=== PATIENT | female | born 1960 | race Caucasian/White ===

== ENCOUNTER 2018-02-14 01:42 | Outpatient (CLI) | payer MEDICAID ==
[~2018-02-14 01:42] MED LIST: INSU100V36 SQ
== END 2018-02-14 23:59 | disposition home or self-care (01) ==
LOC: DIABETIC 01:42
PROVIDERS: ATTEND Surgery
DX: E66.01 Morbid (severe) obesity due to excess calories (principal); E11.9 Type 2 diabetes mellitus without complications; I10 Essential (primary) hypertension; K21.9 Gastro-esophageal reflux disease without esophagitis
CPT/HCPCS: 97802

== ENCOUNTER 2018-05-16 03:06 | Outpatient (CLI) | payer MEDICAID | END 2018-05-16 23:59 | disposition home or self-care (01) | LOC: DIABETIC 03:06 | PROVIDERS: ATTEND Surgery | DX: E66.01 Morbid (severe) obesity due to excess calories (principal); E11.9 Type 2 diabetes mellitus without complications; K21.9 Gastro-esophageal reflux disease without esophagitis; Z88.5 Allergy status to narcotic agent; Z88.8 Allergy status to other drugs, medicaments and biological substances | CPT/HCPCS: 97802 ==

== ENCOUNTER 2018-06-13 01:37 | Outpatient (CLI) | payer MEDICAID | END 2018-06-13 23:59 | disposition home or self-care (01) | LOC: DIABETIC 01:37 | PROVIDERS: ATTEND Surgery | DX: E66.01 Morbid (severe) obesity due to excess calories (principal); E11.9 Type 2 diabetes mellitus without complications; K21.9 Gastro-esophageal reflux disease without esophagitis | CPT/HCPCS: 97802 ==

== ENCOUNTER 2023-03-07 06:33 | Day surgery (SDC) | payer MEDICAID ==
[~2023-03-07] VITALS: Ht 157.5 cm; Wt 112.9 kg
[2023-03-07 06:50] VITALS: BP 138/90; PULSE 42; RESP 16; TEMP 97.5; O2SAT 95
[2023-03-07] MEDS ORDERED: LIRA0.6P2 SQ (07:08)
[2023-03-07] MEDS ORDERED: ATOR20TA66 PO (07:08)
[2023-03-07] MEDS ORDERED: LEVO50TA8 PO (07:08)
[2023-03-07] MEDS ORDERED: OMEP40CA21 PO (07:08)
[2023-03-07] MEDS ORDERED: METF-900 PO (07:08)
[2023-03-07] MEDS ORDERED: LOSA100T58 PO (07:08)
[2023-03-07] MEDS ORDERED: INSU100I31 SQ (07:08)
[2023-03-07] MEDS ORDERED: TIOT4MIS2 INH (07:08)
[2023-03-07] MEDS ORDERED: cefazolin 2gm/D5W 100mL 100 ML IV ONE (07:15)
[2023-03-07] MEDS ORDERED: vancomycin 1,500 MG in NS 300ml IV soln IV ONE (07:15)
[2023-03-07 07:48] LABS: BASOPHILS % (AUTO) 0.6 % (0-1); EOSINOPHILS % (AUTO) 0.6 % (0-6); HEMATOCRIT 40.3 % (35.0-45.0); LYMPHOCYTES # (AUTO) 2.6 X10'3 (1.1-4.8); LYMPHOCYTES % (AUTO) 46.1 % (21-51); MEAN CORPUSCULAR HGB CONC 32.2 g/dL (33.0-36.5); MEAN CORPUSCULAR VOLUME 87.1 FL (78-98); MEAN PLATELET VOLUME 7.8 FL (7.4-10.4); MONOCYTES # (AUTO) 0.3 X10'3 (0-0.9); MONOCYTES % (AUTO) 4.8 % (2-12); NEUTROPHILS # (AUTO) 2.7 X10'3 (1.8-7.7); NEUTROPHILS % (AUTO) 47.9 % (42-75); PLATELET COUNT 190 X10'3 (140-440); RED BLOOD COUNT 4.63 X10'6 (4.20-5.60); RED CELL DISTRIBUTION WIDTH 13.6 % (11.5-14.5); WHITE BLOOD COUNT 5.6 X10'3 (4.5-11.0)
[2023-03-07 07:57] LABS: ALBUMIN 3.4 G/DL (3.4-5.0); ANION GAP 7 (8-16); BLOOD UREA NITROGEN 17 MG/DL (7-18); BUN/CREATININE RATIO 18.3 (10.0-20.0); CALCIUM 8.5 MG/DL (8.5-10.1); CHLORIDE 105 MMOL/L (99-107); CREATININE 0.93 MG/DL (0.40-0.90); GLUCOSE 157 MG/DL (70-104); MAGNESIUM 1.4 MG/DL (1.5-2.4); SODIUM 139 MMOL/L (135-145); TOTAL CARBON DIOXIDE 27.3 MMOL/L (24-32); eCRCL 49 ML/MIN; eGFR 61 ML/MIN
[2023-03-07 07:59] LABS: INR 1.1 INR; PROTHROMBIN TIME 11.5 SECONDS (9.0-12.0)
[2023-03-07] MEDS ORDERED: LIDOCAINE 2%/EPI 1:100,000 inj. Multi-dose 20 ML VIAL ONE (08:40)
[2023-03-07] MEDS ORDERED: vancomycin 1,000mg inj ONE (08:40)
[2023-03-07] MEDS ORDERED: midazolam 1 mg/ML 2ml injection ONE ×2 (08:40→09:58)
[2023-03-07] MEDS ORDERED: fentaNYL/PF 50MCG/1 ML 2ML syringe ONE (08:40)
[2023-03-07] MEDS ORDERED: diphenhydrAMINE 50 mg/ml inj ONE (09:19)
[2023-03-07] MEDS ORDERED: iohexol 350 MG/ML 50ML vial IV ONE (09:51)
[2023-03-07 10:55] VITALS: BP 163/81; PULSE 65; RESP 16; O2SAT 98
[2023-03-07 11:10] VITALS: BP 182/74; PULSE 61; RESP 15; O2SAT 98
[2023-03-07] MEDS ORDERED: normal saline 1000ml 1,000 ML IV SCH (11:10)
[2023-03-07 11:25] VITALS: BP 173/72; PULSE 60; RESP 17; O2SAT 99
[2023-03-07 11:40] VITALS: BP 152/78; PULSE 60; RESP 18; O2SAT 98
[2023-03-07 12:10] VITALS: BP 155/64; PULSE 60; RESP 19; O2SAT 97
== END 2023-03-07 12:30 | disposition home or self-care (01) ==
LOC: SSTAY O 06:33
PROVIDERS: ATTEND Internal Medicine Cardiovascular Disease
DX: I49.5 Sick sinus syndrome (principal); I10 Essential (primary) hypertension; E78.5 Hyperlipidemia, unspecified; E11.9 Type 2 diabetes mellitus without complications; E66.9 Obesity, unspecified; Z68.42 Body mass index [BMI] 45.0-49.9, adult; Z88.5 Allergy status to narcotic agent; Z88.8 Allergy status to other drugs, medicaments and biological substances; G47.30 Sleep apnea, unspecified; Z87.891 Personal history of nicotine dependence; Z98.84 Bariatric surgery status
CPT/HCPCS: 33208; 36415; 71045; 80048; 82948; 83735; 85025; 85610; 93005; 99152; 99153; C1785; C1898; J1200; J2250; J3010; J3370; J7030; Q9967; A4565; A6449

== ENCOUNTER 2023-07-11 09:13 | Emergency (ER) | payer MEDICAID ==
[~2023-07-11] VITALS: Ht 157.5 cm; Wt 109.4 kg
[~2023-07-11 09:13] MED LIST changes: +ATOR20TA66 PO; +INSU100I31 SQ; -INSU100V36 SQ; +LEVO50TA8 PO; +LIRA0.6P2 SQ; +LOSA100T58 PO; +METF-900 PO; +OMEP40CA21 PO; +TIOT4MIS2 INH
[2023-07-11 09:23] VITALS: BP 176/107; PULSE 66; RESP 18; TEMP 97; O2SAT 98
== END 2023-07-11 11:05 | disposition left against medical advice (07) ==
LOC: ER 09:13
DX: U07.1 COVID-19 (principal)
CPT/HCPCS: 99281